=== PATIENT | female | born 1975 | race Caucasian/White ===

== ENCOUNTER 2017-07-09 16:02 | Day surgery (SDC) | payer BC ==
[2017-07-26] MEDS ORDERED: BUPIVACAINE 0.75%/DEXT (SPINAL) 2 ML INJ (07:37)
[2017-07-26] MEDS ORDERED: morphine SULFATE/PF (10 MG/10 ML) INJ (07:39)
[2017-07-26] MEDS ORDERED: MIDAZOLAM 1 MG/ML 2 ML INJ (07:53)
[2017-07-26] MEDS ORDERED: LACTATED RINGER'S 1,000 ML IV* (08:30)
== END 2017-07-26 08:30 | disposition home or self-care (01) ==
LOC: SDS 16:02
DX: N92.0 Excessive and frequent menstruation with regular cycle (principal); D25.9 Leiomyoma of uterus, unspecified; Z53.9 Procedure and treatment not carried out, unspecified reason
CPT/HCPCS: 86850; 86900; 86901; 86920